=== PATIENT | female | born 1975 | race Caucasian/White ===

== ENCOUNTER → 2016-06-17 | Outpatient (CLI) | payer OTHER ==
--- NOTE | 2016-06-19 08:48 | MM ---
Reason for exam: screening (asymptomatic). Baseline mammogram. Physical Findings: Nurse did not find any significant physical abnormalities on exam. MG Screening Mammo w CAD Bilateral CC and MLO view(s) were taken. No significant changes when compared with prior studies. ASSESSMENT: Benign, BI-RAD 2 RECOMMENDATION: Routine screening mammogram of both breasts in 1 year.
== END | disposition home or self-care (01) ==
LOC: RADMAMWWP 14:05
PROVIDERS: ATTEND Family Medicine
DX: Z12.31 Encounter for screening mammogram for malignant neoplasm of breast (principal)

== ENCOUNTER → 2016-08-27 | Outpatient (CLI) | payer OTHER ==
--- NOTE | 2016-08-28 05:41 | CONS ---
DATE OF CONSULTATION: This is a consultation note for sleep apnea. This is a pleasant 41-year-old female patient who was referred to me for evaluation of obstructive sleep apnea. The patient primary care physician is Dr. Ying Mcmullen. The patient's has noted that the patient has been snoring loud and she at times stops breathing. The patient herself is aware of this knowing that she had a recent tendon surgery and during surgery she was told to have some desaturation and features of obstructive sleep apnea and this was told to her by the anesthesiologist. The patient has been having difficulty in lying down flat in bed especially at nighttime and she is sleeping with a couple of pillows keeping head of the bed elevated. She goes to bed around 9 p.m., wakes up at 4:30 a.m. in the morning. She is feeling non- refreshed. Hillsboro score is at 16. Feels drowsy and sleepy, but does not fall asleep during day-to-day activities. She has chronic allergic rhinitis and mild component of bronchial asthma for which she has been on a combination of Nasacort and Singulair. No sleep paralysis. No hallucinations. No cataplexy. No restlessness in the lower extremities. PAST MEDICAL HISTORY: 1. Chronic allergic rhinitis. 2. Questionable asthma. Past surgical history includes tendon repair in her hand. DRUG ALLERGIES: None known of. Outpatient medications list includes Singulair and Nasacort. SOCIAL HISTORY: Smoker, half pack a day. No history of alcoholism. No history of IV drugs. Drinks 2 cups of coffee to help her with alertness. FAMILY HISTORY: Negative for sleep apnea. REVIEW OF SYSTEMS: Twelve-point review of systems was done and positive findings were mentioned above in history of present illness. BP is 144/96, pulse 92, respirations 16, temperature 98.6, saturation 96% on room air. BMI is 33.9. Hillsboro score 16. Weight is 217. GENERAL APPEARANCE: Calm, comfortable. HEENT: Crowding posterior pharynx. Mallampati class IV. There is no goiter or neck masses. LUNGS: Clear to auscultation. HEART: Heart sounds are regular rate and rhythm. Normal S1, S2. ABDOMEN: Soft, nontender, no organomegaly. EXTREMITIES: No edema. No cyanosis or clubbing. IMPRESSION: 1. Clinical obstructive sleep apnea under investigation. 2. Hypersomnia, Hillsboro Score of 16. 3. Obesity, body mass index 33. 4. Allergic rhinitis. PLAN: Proceed with a screening polysomnogram for further investigation.
== END ==
LOC: SLEEP 14:20
PROVIDERS: ATTEND Internal Medicine Critical Care Medicine
DX: G47.33 Obstructive sleep apnea (adult) (pediatric) (principal); G47.10 Hypersomnia, unspecified; E66.9 Obesity, unspecified; J30.9 Allergic rhinitis, unspecified; Z68.33 Body mass index [BMI] 33.0-33.9, adult; Z79.891 Long term (current) use of opiate analgesic; Z79.899 Other long term (current) drug therapy
CPT/HCPCS: 99211

== ENCOUNTER → 2018-07-15 | Outpatient (CLI) | payer OTHER ==
--- NOTE | 2018-07-16 11:22 | MM ---
Reason for exam: screening (asymptomatic). Last mammogram was performed 2 years and 1 month ago. Physical Findings: A clinical breast exam by your physician is recommended on an annual basis and results should be correlated with mammographic findings. MG Screening Mammo w CAD Bilateral CC and MLO view(s) were taken. Prior study comparison: June 17, 2016, bilateral MG screening mammo w CAD. There are scattered fibroglandular densities. No significant changes when compared with prior studies. ASSESSMENT: Benign, BI-RAD 2 RECOMMENDATION: Routine screening mammogram of both breasts in 1 year.
== END ==
LOC: RADMAMWWP 15:26
PROVIDERS: ATTEND Family Medicine
DX: Z12.31 Encounter for screening mammogram for malignant neoplasm of breast (principal)
CPT/HCPCS: 77067

== ENCOUNTER → 2020-06-21 | Outpatient (CLI) | payer OTHER ==
--- NOTE | 2020-06-26 09:31 | MM ---
Reason for exam: screening (asymptomatic). Last mammogram was performed 1 year and 11 months ago. Physical Findings: A clinical breast exam by your physician is recommended on an annual basis and results should be correlated with mammographic findings. MG Screening Mammo w CAD Bilateral CC and MLO view(s) were taken. Prior study comparison: July 15, 2018, bilateral MG screening mammo w CAD. June 17, 2016, bilateral MG screening mammo w CAD. The breast tissue is heterogeneously dense. This may lower the sensitivity of mammography. There is no discrete abnormality. ASSESSMENT: Negative, BI-RAD 1 RECOMMENDATION: Routine screening mammogram of both breasts in 1 year.
== END | disposition home or self-care (01) ==
LOC: RADMAMWWP 10:04
PROVIDERS: ATTEND Family Medicine
DX: Z12.31 Encounter for screening mammogram for malignant neoplasm of breast (principal)
CPT/HCPCS: 77067

== ENCOUNTER → 2022-08-08 | Outpatient (CLI) | payer OTHER ==
--- NOTE | 2022-08-09 08:45 | MM ---
Reason for Exam: Screening (asymptomatic). Last mammogram was performed 2 year(s) and 1 month(s) ago. Patient History: Menarche at age 12. First Full-Term at age 21. Hormonal Contraceptives, from age 19 until age 20. Last menstrual period: 07/10/2022 Risk Values: Jayla 5 year model risk: 0.8%. NCI Lifetime model risk: 8.4%. Prior Study Comparison: 06/17/2016 Bilateral Screening Mammogram, [facility]. 07/15/2018 Bilateral Screening Mammogram, [facility]. 06/21/2020 Bilateral Screening Mammogram, [facility]. Tissue Density: The breast tissue is heterogeneously dense. This may lower the sensitivity of mammography. Findings: Analyzed By CAD. There is no suspicious group of microcalcifications or new suspicious mass in either breast. Overall Assessment: Negative, BI-RAD 1 Management: Screening Mammogram of both breasts in 1 year. A clinical breast exam by your physician is recommended on an annual basis and results should be correlated with mammographic findings. Electronically signed and approved by: Freddy Navarro D.O.
== END | disposition home or self-care (01) ==
LOC: RADMAMWWP 07:27
PROVIDERS: ATTEND Family Medicine
DX: Z12.31 Encounter for screening mammogram for malignant neoplasm of breast (principal)
CPT/HCPCS: 77067

== ENCOUNTER → 2024-09-24 | Outpatient (CLI) | payer OTHER ==
--- NOTE | 2024-09-27 07:31 | MM ---
Reason for Exam: Screening (asymptomatic). Last mammogram was performed 2 year(s) and 2 month(s) ago. Patient History: Menarche at age 12. First Full-Term at age 21. Premenopausal. Hormonal Contraceptives, from age 19 until age 20. Risk Values: Jayla 5 year model risk: 0.8%. NCI Lifetime model risk: 8.2%. Prior Study Comparison: 07/15/2018 Bilateral Screening Mammogram, [facility]. 06/21/2020 Bilateral Screening Mammogram, [facility]. 08/08/2022 Bilateral MG screening mammo w CAD, [facility]. Tissue Density: The breasts are heterogeneously dense, which may obscure small masses. Findings: Analyzed By CAD. Benign-appearing bilateral axillary lymph nodes are redemonstrated. There is no suspicious group of microcalcifications or new suspicious mass in either breast. Overall Assessment: Negative, BI-RAD 1 Management: Screening Mammogram of both breasts in 1 year. . Patient should continue monthly self-breast exams. A clinical breast exam by your physician is recommended on an annual basis. This exam should not preclude additional follow-up of suspicious palpable abnormalities. Note on Jayla scores and lifetime risk: 1. A Jayla score greater than 3% is considered moderate risk. If this is the case, consider specialist referral to assess eligibility for a risk reducing agent. 2. If overall lifetime risk for the development of breast cancer is 20% or higher, the patient may qualify for future screening with alternating mammogram and breast MRI. [facility], , 09/27/2024 7:28 AM. Electronically signed and approved by: Trav Storm M.D.
== END | disposition home or self-care (01) ==
LOC: RADMAMWWP 16:19
PROVIDERS: ATTEND Family Medicine
DX: Z12.31 Encounter for screening mammogram for malignant neoplasm of breast (principal); R92.333 Mammographic heterogeneous density, bilateral breasts; Z92.0 Personal history of contraception
CPT/HCPCS: 77067